=== PATIENT | male | born 1985 | race Hispanic/Latino ===

== ENCOUNTER → 2022-08-21 08:37 | Outpatient (CLI) | payer OTHER, SELFPAY ==
--- NOTE | 2022-08-21 08:40 | DI.US.S_ITS ---
PROCEDURE: US SCROTUM INDICATIONS: Left testis pain TECHNIQUE: Real-time scanning was performed of the scrotum and testicles, with image documentation. Color and pulse Doppler interrogation was performed of both testicles. COMPARISON: None. FINDINGS: Right: Testicle is normal in size at 4.2 x 2.2 x 3 cm, and homogenous in echotexture. Epididymis is normal in overall size and demonstrates an 8 mm epididymal head cyst. This corresponds to the palpable abnormality. No hydrocele or varicoceles. Overlying scrotal skin is normal in thickness. Left: Testicle is normal in size at 4.4 x 2.3 x 3.2 cm, and homogeneous in echotexture. Epididymis is normal in overall size and morphology. No hydrocele or varicoceles. Overlying scrotal skin is normal in thickness. Doppler: Color and pulse Doppler demonstrate normal and symmetric arterial flow in both testicles. IMPRESSION: An 8 mm right epididymal head cyst is seen that corresponds to the palpable abnormality. No intratesticular masses are seen. Dictated by: Gonzalo Romeo M.D. on 08/21/2022 at 12:53 Approved by: Gonzalo Romeo M.D. on 08/21/2022 at 12:54
== END ==
PROVIDERS: Referring Provider Urology; Visit Provider Urology
DX: N50.3 Cyst of epididymis (principal); N50.812 Left testicular pain
CPT/HCPCS: 76870

== ENCOUNTER 2024-12-15 22:18 | Emergency (ER) | payer OTHER, SELFPAY ==
[2024-12-15 22:24] VITALS: BP 140/78; PULSE 96; RESP 18; TEMP 36; O2SAT 96; BMI 45.1
--- NOTE | 2024-12-15 22:30 | PC.NURSE ---
During triage pt completed nasal rinse with 2-10 ml flushes in each nare. Then pt cleared out nasal passages. Sent to lobby with instructions to spouse if symptoms worsen to let front counter clerk know.
== END 2024-12-15 23:09 | disposition left against medical advice (07) ==
PROVIDERS: Emergency Provider Emergency Medicine; PCP Family Medicine
DX: R06.02 Shortness of breath (principal)
CPT/HCPCS: 99281